=== PATIENT | male | born 1960 | race African-American/Black ===

== ENCOUNTER 2020-07-09 18:05 | Emergency (ER) | payer MEDICAID ==
[~2020-07-09] VITALS: Ht 167.6 cm; Wt 73.0 kg
[2020-07-09 19:15] LABS: BASOPHILS % 0.6 % (0.0-2.0); EOSINOPHILS % 0.4 % (0.0-5.0); HEMATOCRIT. 44.1 % (42.0-52.0); HEMOGLOBIN. 14.4 g/dL (14.0-18.0); LYMPHOCYTES % 10.7 % (20.0-50.0); MEAN CORPUSCULAR HEMOGLOBIN 29.8 pg (28.0-32.0); MEAN PLATELET VOLUME 10.2 fl (7.4-10.4); MONOCYTES % 7.5 % (2.0-8.0); NEUTROPHILS % 80.8 % (40.0-76.0); PLATELET 245 x1000/uL (130-400); RED BLOOD CELL COUNT 4.84 mill/uL (4.7-6.1); RED CELL DISTRIBUTION WIDTH 13.4 % (11.6-14.6)
[2020-07-09 19:30] LABS: CHLORIDE 107 mEq/L (98-107)
[2020-07-09] MEDS ORDERED: TETANUS, DIPHTHERIA, PERTUSSIS VAC/PF 0.5ML (>7YR OLD) IM ONE (19:30)
[2020-07-09] MEDS ORDERED: BACITRACIN ZINC OINT UDPKT TOP ONE (19:30)
[2020-07-09] MEDS ORDERED: LIDOCAINE HCL/EPINEPHRINE 1%-EPI 1:100,000 10 ML VIAL IJ ONE (19:30)
[2020-07-09] MEDS ORDERED: POTASSIUM CHLORIDE 20MEQ TABLET SR PO NR (20:45)
[2020-07-09 22:04] VITALS: BP 134/85
[2020-07-09] MEDS ORDERED: ONDANSETRON HCL 4MG/2ML INJ IV PRN (22:15)
== END 2020-07-09 22:42 | disposition left against medical advice (07) ==
LOC: ER 18:05 → EDBD 18:05 → ER 22:42
DX: R55 Syncope and collapse (principal); S01.01XA Laceration without foreign body of scalp, initial encounter; I10 Essential (primary) hypertension; W18.30XA Fall on same level, unspecified, initial encounter; Y93.89 Activity, other specified; Y92.89 Other specified places as the place of occurrence of the external cause; Y99.8 Other external cause status
CPT/HCPCS: 12004; 36415; 70450; 80053; 82962; 83880; 84484; 85025; 90471; 90715; 93005; 99285; J3490; Z7610